=== PATIENT | male | born 1995 | race Caucasian/White ===

== ENCOUNTER 2022-10-10 19:34 | Emergency (ER) | payer OTHER, SELFPAY ==
--- NOTE | 2022-10-10 19:33 | ECG_ITS ---
APPROVED REPORT Exam: Resting ECG HR:80 bpm ECG Measurements Heart Rate 80 AXES MN 157 P 53 QRSd 81 QRS 30 QT 351 T 50 QTc 386 Conclusion SINUS RHYTHM POSSIBLE RIGHT VENTRICULAR CONDUCTION DELAY [RSR (QR) IN V1/V2] SEPTAL MYOCARDIAL INFARCTION , PROBABLY OLD [40+ ms Q WAVE IN V1/V2] ABNORMAL ECG UNCONFIRMED REPORT Electronically signed by : Sarthak Huang MD 10/11/2022 14:20:21
[2022-10-10 19:38] VITALS: BP 142/80; PULSE 83; RESP 16; TEMP 36.9; O2SAT 100; BMI 32.6
--- NOTE | 2022-10-10 19:48 | XR_ITS ---
PROCEDURE INFORMATION: Exam: XR Chest Exam date and time: 10/10/2022 7:51 PM Age: 27 years old Clinical indication: Sternal or substernal pain; Additional info: Cp TECHNIQUE: Imaging protocol: Radiologic exam of the chest. Views: 2 views. COMPARISON: CR CXR CHEST(2 VIEWS-NOT PORTABLE) 01/05/2017 9:01 PM FINDINGS: Lungs: Unremarkable. No consolidation. Pleural spaces: Unremarkable. No pleural effusion. No pneumothorax. Heart/Mediastinum: Unremarkable. No cardiomegaly. Bones/joints: Unremarkable. IMPRESSION: No acute findings.
[2022-10-10 19:58] LABS: Chloride 103 mmol/L (98-107)
--- NOTE | 2022-10-10 19:58 | PC.NURSE ---
Pt gone to RAD
[2022-10-10 19:59] LABS: Basophils # 0.1 K/mm3 (0-0.2); Eosinophils # 0.3 K/mm3 (0.0-0.4); Eosinophils % 3.4 % (0.1-12.0); Hematocrit 49.4 % (42.0-52.0); Lymphocytes # 3.3 K/mm3 (0.7-4.5); Lymphocytes % 41.7 % (10-50); Mean Corpuscular HGB Conc 32.4 g/dL (31.8-35.4); Mean Corpuscular Hemoglobin 30.5 pg (27.0-31.2); Mean Corpuscular Volume 94.3 fl (80-94); Mean Platelet Volume 9.7 fl (7.4-10.4); Monocytes # 0.5 K/mm3 (0.1-1.0); Monocytes % 5.7 % (1.7-9.3); Neutrophils # 3.8 K/mm3 (1.8-7.8); Neutrophils % 48.1 % (37.0-80.0); Platelet Count 214 K/mm3 (142-424); Potassium 4.5 mmoL/L (3.5-5.1); Red Blood Count 5.24 M/mm3 (4.60-6.20); Red Cell Distribution Width 13.2 % (11.5-17.5); Sodium 139 mmol/L (136-145); White Blood Count 7.9 K/mm3 (4.8-10.8)
[2022-10-10 20:02] LABS: Alanine Aminotransferase 73 U/L (12-78); Alkaline Phosphatase 38 U/L (38-126); Anion Gap 13.5 mEq/L (5-15); Aspartate Amino Transferase 72 U/L (17-59); Bilirubin,Direct 0.9 mg/dl (0.0-0.4); Bilirubin,Indirect 0.4 mg/dL (0.0-0.9); Bilirubin,Total 1.3 mg/dl (0.2-1.3); Bilirubin,Unconjugated 0.4 mg/dL (0.0-1.1); Blood Urea Nitrogen 10 mg/dl (9-20); Calcium 8.8 mg/dl (8.4-10.2); Carbon Dioxide 27 mmol/L (22.0-30.0); Creatinine Clearance Estimated 150 mL/min (50-200); Estimated Glomerular Filt Rate 88 ml/min (>60); GFR (African American) 107 ML/MIN (>60); Glucose 84 mg/dl (74-100); Magnesium 2.4 mg/dl (1.6-2.3)
[2022-10-10 20:03] LABS: Albumin Level 4.9 g/dl (3.5-5.0); Total Protein,Serum 8.4 g/dl (6.3-8.2)
--- NOTE | 2022-10-10 20:11 | [facility].EDCP ---
Discharge Plan Disposition Chief Complaint: Chest Pain Prescriptions Prescriptions: No Action No Known Home Medications Referrals Follow up/Referrals: Provider,Referral, MD [Primary Care Provider] - See instructions Clinical Impressions Clinical Impression: Atypical chest pain Instructions Patient Instructions: DI for Atypical Chest Pain Discharge ED Provider: Emma (ED),[facility] Chest Pain HPI General Chief Complaint: Chest Pain Stated Complaint: Chest pain Time Seen by Provider: 10/10/22 20:05 Mode of Arrival: Ambulatory Source of Information: Patient, Spouse and Medical Record Limitations: No Limitations Description of Symptoms (Recalled from ER Triage Doc. by RN): Pt arrives to ed via private vehicle c c/o intermittent midsternal cp that radiates into his right upper quadrant since Friday (10/08) that has gotten worse since then. Today at approx 1700 he states that the pain has gotten severe. Does report that he ate dinner at 1630. States that the pain worsens when he sits still. History of Present Illness HPI narrative: 2 day hx of lower chest epigastric pain - no known ht dis MD complaint: chest pain Onset (ago): day(s) Duration: intermittent Pain location: epigastric Severity: moderate Quality: dull Pain radiation: abdomen Risk Factors for CAD: Family Hx of CAD and Smoking Treatments prior to or on arrival for Cardiac Chest Pain: none MARYAN Score for Non-Stemi Age of Patient: <30 years old Heart Rate: 70-89 bpm Systolic Blood Pressure: 100-119 mmHg Serum Creatinine: 0.80-1.19 mg/dl CHF [place] Class: I-No CHF Other Risk Factors: None Non-Stemi Risk Score: 59 Risk Stratification: 1-108 = Low Risk Related Data Home Medications Medication Instructions Recorded Confirmed No Known Home Medications 10/10/22 10/10/22 Allergies Allergy/AdvReac Type Severity Reaction Status Date / Time Sulfa (Sulfonamide Allergy Severe HIVES, Verified 10/10/22 19:52 Antibiotics) ANAPHYLAXIS [SULFA (SULFONAMIDE ANTIBIOTICS)] [facility] Disclaimer: The information contained in this section may have been updated after the patient was seen, as this information can be updated by other users. Social History Smoking Status: Current every day smoker alcohol intake: never current occupational status: employed Travel in the last 8 weeks: None ROS Obtained: Yes All systems reviewed & no additional complaints except as documented Physical Exam General General appearance: alert Head Head exam: normocephalic Eye Eye exam: Present PERRL and EOMI; Absent scleral icterus ENT ENT exam: Present mucous membranes moist Neck Neck exam: Present trachea midline Respiratory Respiratory exam: Present normal lung sounds bilaterally; Absent respiratory distress Cardiovascular Cardiovascular exam: Present regular rate; Absent systolic murmur Abdominal Exam Abdominal exam: Present soft and tenderness; Absent guarding, rebound or rigidity Abdominal tenderness: Present epigastrium and moderate Extremities Exam Extremities exam: Present full ROM; Absent joint swelling or calf tenderness Neurological Exam Neurological exam: Present alert, oriented X3 and CN II-XII intact; Absent motor sensory deficit Psychiatric Psychiatric exam: Present normal affect Skin Skin exam: Absent rash Medical Decision Making Medical Records Medical records reviewed: Yes I reviewed the patient's medical records. Osmar Inquiry Pt receiving controlled substance: No Vital Signs: 10/10/22 19:38 10/10/22 20:31 10/10/22 21:01 Temperature 98.4 F Temperature Source Oral Pulse Rate 69 68 Pulse Rate [Apical] 83 Respiratory Rate 16 25 H 22 Blood Pressure 109/69 L 119/68 Blood Pressure [Right Arm] 142/80 H Blood Pressure Mean [Right Arm] 100 Blood Pressure Source [Right Arm] Automatic Cuff Blood Pressure Position [Right Arm] Sitting 02 Sat by Pulse Oximetry 100 97 98 Oxygen Delivery Method
[2022-10-10 20:15] LABS: Troponin I < 0.01 ng/ml (0.00-0.034)
[2022-10-10 20:31] VITALS: BP 109/69; PULSE 69; RESP 25; O2SAT 97
--- NOTE | 2022-10-10 20:40 | CT_ITS ---
PROCEDURE INFORMATION: Exam: CT Abdomen And Pelvis With Contrast Exam date and time: 10/10/2022 8:52 PM Age: 27 years old Clinical indication: Abdominal pain; Generalized; Additional info: Abd pain TECHNIQUE: Imaging protocol: Computed tomography of the abdomen and pelvis with contrast. Radiation optimization: All CT scans at this facility use at least one of these dose optimization techniques: automated exposure control; mA and/or kV adjustment per patient size (includes targeted exams where dose is matched to clinical indication); or iterative reconstruction. Contrast material: ISOVUE; Contrast volume: 75 ml; Contrast route: IV; REPORTING DATA: Count of CT and Cardiac NM exams in prior 12 months: This patient has received 0 known CTs and 0 known cardiac nuclear medicine studies in the 12 months prior to the current study. COMPARISON: CR Chest 10/10/2022 7:51 PM FINDINGS: Liver: Normal. No mass. Gallbladder and bile ducts: Normal. No calcified stones. No ductal dilation. Pancreas: Normal. No ductal dilation. Spleen: Normal. No splenomegaly. Adrenal glands: Normal. No mass. Kidneys and ureters: Normal. No hydronephrosis. Stomach and bowel: Unremarkable. No obstruction. No mucosal thickening. Appendix: No evidence of appendicitis. Intraperitoneal space: Unremarkable. No free air. No significant fluid collection. Vasculature: Unremarkable. No abdominal aortic aneurysm. Lymph nodes: Unremarkable. No enlarged lymph nodes. Urinary bladder: Unremarkable as visualized. Reproductive: Unremarkable as visualized. Bones/joints: Unremarkable. No acute fracture. Soft tissues: Unremarkable. IMPRESSION: No acute findings.
[2022-10-10 21:01] VITALS: BP 119/68; PULSE 68; RESP 22; O2SAT 98
[2022-10-10 21:01] LABS: Amylase 72 U/L (30-110); Lipase 144 U/L (23-300)
--- NOTE | 2022-10-10 21:14 | PC.NURSE ---
Dr. Carter at to update on results
[2022-10-10 21:32] VITALS: BP 118/76; PULSE 67; PULSE 79; RESP 18; TEMP 36.6; O2SAT 99
== END 2022-10-10 21:54 | disposition home or self-care (01) ==
PROVIDERS: Emergency Provider Emergency Medicine
DX: R07.89 Other chest pain (principal); F17.200 Nicotine dependence, unspecified, uncomplicated
CPT/HCPCS: 71046; 74177; 80048; 80076; 82150; 83690; 83735; 84484; 85025; 93005; 96360; 96374; 96375; 99285; J2405; Q9967